=== PATIENT | male | born 1985 | race Caucasian/White ===

== ENCOUNTER → 2022-11-29 | Outpatient (CLI) | payer OTHER | LOC: MHCPAIN 10:15 | DX: M47.817 Spondylosis without myelopathy or radiculopathy, lumbosacral region (principal); M54.50 Low back pain, unspecified | CPT/HCPCS: J0665; J1100; J2250; J3010 ==

== ENCOUNTER → 2023-11-30 | Outpatient (CLI) | payer OTHER | LOC: MHCPAIN 08:06 | DX: M47.817 Spondylosis without myelopathy or radiculopathy, lumbosacral region (principal); M51.27 Other intervertebral disc displacement, lumbosacral region; M54.16 Radiculopathy, lumbar region | CPT/HCPCS: G0463 ==